=== PATIENT | male | born 1965 | race Caucasian/White ===

== ENCOUNTER → 2016-08-29 | Day surgery (SDC) | payer OTHER ==
[2016-08-29 08:33] LABS: HCT 47.6 % (42.0-52.0); HGB 16.1 g/dl (13.2-18.0); MCH 31.1 pg (25.0-31.0); MCHC 33.8 g/dL (32.0-36.0); MCV 91.9 fL (78.0-100.0); MPV 10.1 fL (6.0-9.5); RBC 5.18 M/uL (4.70-6.00); RDW 15.3 % (11.5-14.0)
[2016-08-29 09:38] LABS: ALBUMIN 4.3 g/dL (3.5-5.0); BILIRUBIN - TOTAL 0.4 mg/dL (0.1-1.0); CREATININE 0.8 mg/dL (0.7-1.2); GLOBULIN (CALCULATION) 2.6 g/dL (2.2-4.2); TOTAL PROTEIN 6.9 g/dL (6.4-8.3)
== END | disposition home or self-care (01) ==
LOC: FAS 07:50
PROVIDERS: Surgery
DX: D72.1 Eosinophilia (principal); E78.00 Pure hypercholesterolemia, unspecified; E78.2 Mixed hyperlipidemia; E78.5 Hyperlipidemia, unspecified; K21.9 Gastro-esophageal reflux disease without esophagitis; F32.9 Major depressive disorder, single episode, unspecified; F41.9 Anxiety disorder, unspecified; F17.210 Nicotine dependence, cigarettes, uncomplicated; G40.909 Epilepsy, unspecified, not intractable, without status epilepticus; J44.9 Chronic obstructive pulmonary disease, unspecified; M19.90 Unspecified osteoarthritis, unspecified site; Z86.010 Personal history of colon polyps; Z81.8 Family history of other mental and behavioral disorders; Z82.61 Family history of arthritis; Z80.9 Family history of malignant neoplasm, unspecified; Z83.2 Family history of diseases of the blood and blood-forming organs and certain disorders involving the immune mechanism; Z83.6 Family history of other diseases of the respiratory system; Z82.3 Family history of stroke; Z82.0 Family history of epilepsy and other diseases of the nervous system; Z79.899 Other long term (current) drug therapy; Z98.890 Other specified postprocedural states
CPT/HCPCS: 36415; 80053; 88305; 88311; 88313; J2704